=== PATIENT | male | born 1985 | race Two or more races ===

== ENCOUNTER 2022-05-16 12:09 | Emergency (ER) | payer SELFPAY | END 2022-05-16 17:01 | disposition home or self-care (01) | LOC: MW.ED 12:09 → EDBD 12:09 → MW.ED 17:01 | DX: S01.412A Laceration without foreign body of left cheek and temporomandibular area, initial encounter (principal); W26.8XXA Contact with other sharp object(s), not elsewhere classified, initial encounter | CPT/HCPCS: 99282 ==